=== PATIENT | female | born 1980 | race Caucasian/White ===

== ENCOUNTER → 2017-04-08 | Outpatient (CLI) | payer OTHER ==
--- NOTE | 2017-04-08 16:07 | RAD ---
Renal ultrasound complete. 04/08/2017 Clinical indication: Bilateral flank pain. Comparison: Report from prior CT April 06, 2017 Findings: Right kidney measures 10.1 cm without collective system dilatation, abnormal perinephric fluid collection or suspicious contour deforming mass. Left kidney measures 11.7 cm without collected system dilatation, abnormal perinephric fluid collection or suspicious contour deforming mass. Partially distended urinary bladder within normal limits. Impression: Normal renal sonogram without hydronephrosis.
== END | disposition home or self-care (01) ==
LOC: US 07:31
PROVIDERS: ATTEND Nurse Practitioner Family
DX: N23 Unspecified renal colic (principal)
CPT/HCPCS: 76770

== ENCOUNTER → 2018-07-06 | Outpatient (CLI) | payer BC ==
--- NOTE | 2018-07-06 18:32 | RAD ---
Cervical spine, 3 views, 07/06/2018: HISTORY: Neck pain, right arm radiculopathy There is moderate narrowing of the C5-6 and C6-7 disc spaces with moderate marginal spurring. The other intervertebral disc spaces are well-maintained. There is mild facet joint arthropathy in the lower lumbar spine. No fracture or dislocation is identified. There is reversal of the normal cervical lordosis. The prevertebral soft tissues are unremarkable. IMPRESSION: 1. Reversal of the normal cervical lordosis. 2. Moderate degenerative disc disease at C5-6 and C6-7. Electronically signed by: Israel Elaine MD (07/06/2018 6:29 PM) [facility]
== END | disposition home or self-care (01) ==
LOC: RAD 12:09
PROVIDERS: ATTEND Psychiatry & Neurology Neurology
DX: M50.323 Other cervical disc degeneration at C6-C7 level (principal); M48.02 Spinal stenosis, cervical region; M12.88 Other specific arthropathies, not elsewhere classified, other specified site; M46.02 Spinal enthesopathy, cervical region
CPT/HCPCS: 72040

== ENCOUNTER → 2020-05-09 | Outpatient (CLI) | payer BC ==
--- NOTE | 2020-05-09 17:00 | RAD ---
PROCEDURE: HAND RIGHT 3V CLINICAL INDICATION / HISTORY: Reason: INJURY 2 MONTHS, RIGHT THUMB SWELLING / Spl. Instructions: / History: . TECHNIQUE: PA, lateral and oblique views of the right hand. COMPARISON: None FINDINGS: No fracture or dislocation is identified. The bone density is normal. The joint spaces are maintained, and there are no erosions to suggest an inflammatory arthropathy. The soft tissues are unremarkable. IMPRESSION: No acute osseous abnormality. Electronically signed by: Ad Miller MD (05/09/2020 4:56 PM) [id number]
== END | disposition home or self-care (01) ==
LOC: DXRAD 14:52
PROVIDERS: ATTEND Physician Assistant
DX: M79.644 Pain in right finger(s) (principal)
CPT/HCPCS: 73130